=== PATIENT | female | born 1960 | race Hispanic/Latino ===

== ENCOUNTER 2018-03-18 12:12 | Outpatient (CLI) | payer BC ==
--- NOTE | 2018-03-18 13:54 | XRay Report ---
XRAY CHEST TWO VIEWS: 03/18/18 12:12:00 CLINICAL: Pneumonia.Left inflammatory breast cancer.. COMPARISON: 09/30/15 FINDINGS: The lungs are normally expanded and clear. No airspace disease or pleural effusion. Normal heart and pulmonary vasculature. A right [id number] tip is in the distal SVC. Status post left mastectomy and left axillary node dissection. IMPRESSION: No acute cardiopulmonary process.No pneumonia and no evidence of metastatic disease.
== END 2018-03-18 12:13 | disposition home or self-care (01) ==
LOC: SPVWC 12:12
PROVIDERS: ATTEND Nurse Practitioner
DX: C50.112 Malignant neoplasm of central portion of left female breast (principal); I10 Essential (primary) hypertension; E78.00 Pure hypercholesterolemia, unspecified; E66.9 Obesity, unspecified; K21.9 Gastro-esophageal reflux disease without esophagitis; M19.90 Unspecified osteoarthritis, unspecified site; E11.9 Type 2 diabetes mellitus without complications; F32.9 Major depressive disorder, single episode, unspecified; F41.9 Anxiety disorder, unspecified; E03.9 Hypothyroidism, unspecified; Z90.49 Acquired absence of other specified parts of digestive tract
CPT/HCPCS: 71046

== ENCOUNTER 2019-06-09 05:48 | Day surgery (SDC) | payer BC, OTHER ==
[~2019-06-09 05:48] MED LIST: LACTATED RINGERS 1,000 ML IV SCH
[2019-06-09] MEDS ORDERED: MIDAZOLAM 2 MG/2 ML INJ IV NR (06:00)
[2019-06-09] MEDS ORDERED: ceFAZolin/Water 2 GM/20 ML 2 GM/20 ML SYRINGE IV NR (06:00)
[2019-06-09] MEDS ORDERED: BACTERIOSTATIC SODIUM CHLORIDE 0.9% 30 ML VIAL INFILTRATI ONE (06:58)
[2019-06-09] MEDS ORDERED: BUPIVACAINE/PF (0.25%) 2.5 MG/ML 30 ML VIAL INFILTRATI ONE ×2 (07:23→08:02)
[2019-06-09] MEDS ORDERED: LIDOCAINE (1%) 10 MG/1 ML VIAL 20 ML MDV ONE (07:23)
[2019-06-09] MEDS ORDERED: fentaNYL 100 MCG/2 ML INJ IV PRN (07:27)
--- NOTE | 2019-06-09 07:29 | Anesthesia Consultation ---
Anesthesia Consult and Med Hx Date of service: 06/09/19 - Airway Anesthetic Teeth Evaluation: Good ROM Head & Neck: Adequate Mental/Hyoid Distance: Adequate Mallampati Class: Class III Intubation Access Assessment: Possibly Difficult - Pulmonary Exam CTA: Yes - Cardiac Exam Cardiac Exam: RRR - Pre-Operative Health Status ASA Pre-Surgery Classification: ASA3 Proposed Anesthetic Plan: MAC - Pulmonary Hx Smoking: No Hx Respiratory Symptoms: No Hx Sleep Apnea: (HIGH RISK) - Cardiovascular System Hx Hypertension: Yes Hx Heart Attack/AMI: No Hx Percutaneous Transluminal Coronary Angioplasty (PTCA): No Hx Peripheral Vascular Disease: No - Central Nervous System CVA: No - Gastrointestinal Hx Gastroesophageal Reflux Disease: No - Endocrine Hx Renal Disease: No Hx Liver Disease: No Hx Non-Insulin Dependent Diabetes: Yes Hx Hypothyroidism: Yes - Other Systems Hx Alcohol Use: Yes (occassional) Hx Substance Use: No Hx Cancer: Yes (hx breast ca) Hx Obesity: Yes (BMI 37) - Additional Comments Anesthesia Medical History Comments: No hx anesthetic complications.
--- NOTE | 2019-06-09 07:29 | Anesthesia Day of Surgery ---
Anesthesia Day of Surgery - Day of Surgery Patient Examined: Yes Patient H&P Reviewed: Yes Patient is NPO: Yes
[2019-06-09] MEDS ORDERED: HYDROmorphone 1 MG/1 ML INJ ONE (07:42)
[2019-06-09] MEDS ORDERED: MIDAZOLAM 2 MG/2 ML INJ ONE (07:42)
[2019-06-09] MEDS ORDERED: PROPOFOL 200 MG/20 ML VIAL IV ONE (07:43)
[2019-06-09] MEDS ORDERED: LIDOCAINE MPF (2%) 20 MG/1 ML VIAL 5 ML ONE (07:43)
--- NOTE | 2019-06-09 08:40 | Short Stay Summary ---
Short Stay Documentation Date of service: 06/09/19 - History H&P: obtained from office - Allergies and Medications Current Medications: Allergies No Known Allergies Allergy (Verified 06/06/19 11:08) Home Medications Medication Instructions Recorded Confirmed Last Taken Type Cholecalciferol (Vitamin D3) 2,000 unit PO QDAY 09/29/15 06/06/19 06/08/19 10:00 History [Vitamin D3] Cyanocobalamin (Vitamin B-12) 2,000 mcg PO QDAY 09/29/15 06/06/19 06/08/19 10:00 History [Vitamin B-12] Ubidecarenone [Co Q-10] 200 mg PO QHS 09/29/15 06/06/19 06/08/19 10:00 History metFORMIN [Glucophage] 500 mg PO BID 09/29/15 06/06/19 06/08/19 10:00 History AtorvaSTATin [Lipitor] 10 mg PO QHS 06/06/19 06/06/19 06/08/19 10:00 History Escitalopram Oxalate [Lexapro] 20 mg PO QHS 06/06/19 06/06/19 06/08/19 10:00 History Levothyroxine [Synthroid] 50 mcg PO QAM 06/06/19 06/06/19 06/08/19 10:00 History Losartan [Cozaar] 100 mg PO QDAY 06/06/19 06/06/19 06/08/19 10:00 History Ranibizumab [Lucentis] 0.3 mg IO Q6W 06/06/19 06/09/19 05/12/19 10:00 History Sitagliptin Phosphate [Januvia] 50 mg PO DAILY 06/06/19 06/06/19 06/08/19 10:00 History Vits A,C,E/Lutein/Minerals 1 each PO DAILY 06/06/19 06/06/19 06/08/19 10:00 History [Ocuvite with Lutein Tablet] Aspirin [Aspirin BABY CHEW TAB] 81 mg PO QDAY 06/09/19 06/09/19 06/08/19 10:00 History Active Medications Fentanyl (Sublimaze) 50 mcg IV Q5MIN PRN PRN Reason: Pain , Severe (7-10) Stop: 06/09/19 20:00 Cefazolin Sodium (Ancef/Sterile Water 2 Gm/20 Ml) 2 gm in 20 mls @ 80 mls/hr IV PREOP NR; Protocol Stop: 06/09/19 21:00 Lactated Ringer's (Lactated Ringers) 1,000 mls @ 100 mls/hr IV DIRECT AMY Last Admin: 06/09/19 07:10 Dose: 100 mls/hr Documented by: Midazolam HCl (Versed) 2 mg IV PREOP NR Stop: 06/09/19 23:59 Last Admin: 06/09/19 07:57 Dose: Not Given Documented by: - Brief post op/procedure progress note Date of procedure: 06/09/19 Pre-op diagnosis: Central Venous Access Not Indicated, Left Breast Cancer Post-op diagnosis: same Procedure: Right Chest Portacath Removal Anesthesia: MAC Surgeon: SUDHA YEUNG Expert Witness: SHIVA BROWER Estimated blood loss: minimal Pathology: list Specimen disposition: to lab Condition: stable - Disposition Condition at discharge: Stable Disposition: DC-01 TO HOME OR SELFCARE Short Stay Discharge Plan Activity: no driving until cleared by PCP Weight Bearing Status: Full Weight Bearing Diet: regular Wound: keep clean and dry, per your surgeon's advice, other (Can shower after 48 hours; no sitting in standing water; no pools, no baths, no lakes) Special Instructions: no heavy lifting Follow up with: SUDHA YEUNG MD [Staff Physician] - 7 Days
--- NOTE | 2019-06-09 08:43 | Operative Report ---
Operative Report Operative Report: Operative Report: Date of Service: June 09, 2019 Properative diagnosis: Right port with central venous access not indicated Postoperative diagnosis: Same Procedure: Right port removal Surgeon: Neeta Pimentel MD Car Examiner: Amy Perez MD Anesthesia: Local MAC Findings: Removal of right port in its entirety Complications: None Drain: None Disposition: PACU in good condition Indications for operative procedure: This is a 59-year-old lady with a personal history of left breast cancer. Patient has completed neoadjuvant chemotherapy and central venous access no longer indicated. Patient wished to proceed with port removal. Procedure in detail: Patient was taken to the operating procedure room. She was laid supine. Local MAC anesthesia was administered. The port was identified of the right chest.The right chest was prepped and draped in the normal sterile operative fashion. The skin was anesthetized with 1% lidocaine mix with quarter percent Marcaine. The prior port incision was opened with a 15 blade knife and taken down to the subcutaneous tissues. The port was encountered. The catheter was encountered and was appropriately dissected free and removed in its entirety. Then proceed with port removal with dissection of scar tissue around the port. The port was removed in its entirety without any complications. Hemostasis was obtained. The subcutanoeus tisses were brought together and closed with interrupted 3-0 Vicryl followed by closing of the skin with a running 4-0 Monocryl. She tolerated the procedure very well and was transferred to PACU in good condition.
[2019-06-09 10:01] VITALS: BP 110/59
--- NOTE | 2019-06-09 10:35 | Post Anesthesia Evaluation ---
- Post Anesthesia Evaluation Patient Participated: Yes Airway Patent: Yes Stable Respiratory Function: Yes Nausea/Vomiting: No Temp > 96.8F: Yes Pain Manageable: Yes Adequeate Hydration: Yes Anesthesia Complications: No
== END 2019-06-09 05:49 | disposition home or self-care (01) ==
LOC: OR 05:48
PROVIDERS: ATTEND Surgery
DX: Z45.2 Encounter for adjustment and management of vascular access device (principal); E78.00 Pure hypercholesterolemia, unspecified; I10 Essential (primary) hypertension; E66.9 Obesity, unspecified; K21.9 Gastro-esophageal reflux disease without esophagitis; E11.42 Type 2 diabetes mellitus with diabetic polyneuropathy; M19.90 Unspecified osteoarthritis, unspecified site; G62.9 Polyneuropathy, unspecified; E03.9 Hypothyroidism, unspecified; F32.9 Major depressive disorder, single episode, unspecified; F41.9 Anxiety disorder, unspecified; Z72.89 Other problems related to lifestyle; Z98.890 Other specified postprocedural states; Z79.899 Other long term (current) drug therapy; Z79.82 Long term (current) use of aspirin; Z79.84 Long term (current) use of oral hypoglycemic drugs; Z90.49 Acquired absence of other specified parts of digestive tract; Z68.37 Body mass index [BMI] 37.0-37.9, adult; Z85.3 Personal history of malignant neoplasm of breast; Z90.12 Acquired absence of left breast and nipple; Z98.51 Tubal ligation status; Z80.8 Family history of malignant neoplasm of other organs or systems
CPT/HCPCS: 36590; 82962; 88300; J0690; J1170; J2250; J2704; J7120; 88302